=== PATIENT | male | born 1940 | race Two or more races ===

== ENCOUNTER 2018-09-16 09:15 | Outpatient (CLI) | payer OTHER ==
[~2018-09-16 09:15] MED LIST: ATENOLOL25 MG; LOZOL2.5 MG; TENORMIN25 MG
== END 2018-09-16 09:19 | disposition home or self-care (01) ==
LOC: RAD 501 09:15
DX: H25.011 Cortical age-related cataract, right eye (principal); Z98.41 Cataract extraction status, right eye